=== PATIENT | male | born 2000 | race Caucasian/White ===

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

== ENCOUNTER 2019-10-10 13:46 | Emergency (ER) | payer OTHER ==
[2019-10-10 13:52] VITALS: BMI 37.4
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
[2019-10-10] MEDS ORDERED: KETOROLAC TROMETHAMINE 30 MG/1 ML VIAL IVPUSH ONE (14:34)
[2019-10-10] MEDS ORDERED: METOCLOPRAMIDE HCL INJECTION 10 MG/2 ML VIAL IVPUSH ONE (14:34)
[2019-10-10] MEDS ORDERED: METOCLOPRAMIDE HCL INJECTION 10 MG/2 ML VIAL ONE (14:38)
[2019-10-10] MEDS ORDERED: KETOROLAC TROMETHAMINE 60 MG/2 ML VIAL ONE (14:38)
[2019-10-10 16:50] VITALS: BP 103/51; PULSE 50; TEMP 98.4
== END 2019-10-10 17:07 | disposition home or self-care (01) ==
LOC: JER 13:46
PROC: 3E033NZ Introduction of Analgesics, Hypnotics, Sedatives into Peripheral Vein, Percutaneous Approach (ICD-10-PCS; principal; 2019-10-10)
PROC: 3E033GC Introduction of Other Therapeutic Substance into Peripheral Vein, Percutaneous Approach (ICD-10-PCS; 2019-10-10)
DX: G44.209 Tension-type headache, unspecified, not intractable (principal)
CPT/HCPCS: 99285-25

== ENCOUNTER 2021-08-21 00:47 | Emergency (ER) | payer OTHER ==
[2021-08-21 01:21] VITALS: BP 116/76; PULSE 63; TEMP 98.4; BMI 34.5
[2021-08-21] MEDS ORDERED: IBUPROFEN 600 MG TABLET (FP) PO ONE ×2 (02:18→02:23)
[2021-08-21] MEDS ORDERED: PSEUDOEPHEDRINE HCL 30 MG TABLET PO ONE (02:18)
[2021-08-21] MEDS ORDERED: PSEUDOEPHEDRINE HCL 60 MG TABLET ONE (02:24)
[2021-08-21 03:38] LABS: THROAT:GRP A STREP NOT DETECTED (NOTDETECTED)
== END 2021-08-21 04:07 | disposition home or self-care (01) ==
LOC: JER 00:47
DX: R05.1 Acute cough (principal)
CPT/HCPCS: 0241U-QW; 71046-TC-FY; 87651; 99283-25

== ENCOUNTER 2022-02-28 01:30 | Emergency (ER) | payer OTHER ==
[2022-02-28 01:50] VITALS: BP 114/71; PULSE 79; RESP 20; TEMP 98.4; BMI 40.7
[2022-02-28] MEDS ORDERED: ALBUTEROL SO4 2.5/IPRATROPIUM 0.5 INH SOL 3 ML VIAL.NEB. NEB ONE ×2 (02:58→03:22)
== END 2022-02-28 04:41 | disposition home or self-care (01) ==
LOC: JER 01:30
PROC: 3E0F7GC Introduction of Other Therapeutic Substance into Respiratory Tract, Via Natural or Artificial Opening (ICD-10-PCS; principal; 2022-02-28)
DX: J45.909 Unspecified asthma, uncomplicated (principal)
CPT/HCPCS: 0241U-QW; 99283-25